=== PATIENT | female | born 1995 | race Two or more races ===

== ENCOUNTER → 2024-10-01 | Outpatient (CLI) | payer MEDICAID, SELFPAY ==
--- NOTE | 2024-10-01 13:00 | XR_ITS ---
Examination: Abdomen sonogram, complete Date and time of exam: October 01, 2024 1330 hours INDICATIONS: Flank pain beginning 6 months ago. Technique: Multiple real-time grayscale transabdominal sonographic images of the abdomen have been obtained. Findings: Normal gallbladder Normal common bile duct 0.2 cm Pancreatic head 2.8 cm Aorta not enlarged Liver 12.5 cm smooth contour no focal liver lesions Normal hepatopedal portal venous flow Patent IVC Right kidney 10.6 x 4.5 x 4.2 cm cortex 1.2 cm Left kidney 10.0 x 4.8 x 5.0 cm cortex 2.0 cm Mild left renal parenchymal scar formation Spleen 8.5 cm IMPRESSION: Normal gallbladder Liver normal size no focal liver lesions Mild left renal parenchymal scar formation
== END | disposition home or self-care (01) ==
LOC: CDIM 13:00
PROVIDERS: PCP Nurse Practitioner Family; Referring Provider Nurse Practitioner Family; Visit Provider Nurse Practitioner Family
DX: N28.89 Other specified disorders of kidney and ureter (principal)
CPT/HCPCS: 76700